=== PATIENT | male | born 1995 | race Hispanic/Latino ===

== ENCOUNTER 2021-03-20 13:56 | Outpatient (CLI) | payer OTHER ==
--- NOTE | 2021-03-20 15:18 | Cat Scan Report ---
CT SINUSES HISTORY: Retention cyst COMPARISON: None. TECHNIQUE: Axial images of the sinuses were obtained. Sagittal and coronal reformats were generated. All CT scans at this location are performed using CT dose reduction for ALARA by means of automated e xposure control. CONTRAST: None. FINDINGS: Nasal septum: Mild deviation to the left by 3 mm. Paranasal sinuses: An approximate 1.9 cm mucous retention cyst is identified in the inferior right ma xillary sinus. There is mild focal mucosal thickening in the inferior left maxillary sinus. The remai carlos sinuses are clear. Ostiomeatal complex: No significant abnormality. Visualized mastoid air cells: No significant abnormality. Visualized intracranial space: No significant abnormality. Visualized orbits: No significant abnormality. Additional findings: None. IMPRESSION: Mild chronic maxillary sinus disease as described. Mild deviation of the nasal septum to the left. Signer Name: Hamlet Ferrell Jr, MD Signed: 03/20/2021 3:14 PM Workstation Name: [id number]
== END 2021-03-20 13:57 | disposition home or self-care (01) ==
LOC: CT 13:56
PROVIDERS: ATTEND Internal Medicine
DX: J34.2 Deviated nasal septum (principal); J32.0 Chronic maxillary sinusitis; J34.1 Cyst and mucocele of nose and nasal sinus
CPT/HCPCS: 70486